=== PATIENT | female | born 1950 | race Caucasian/White ===

== ENCOUNTER 2017-09-16 13:02 | Outpatient (CLI) | payer MEDICARE | END 2017-09-16 13:03 | disposition home or self-care (01) | LOC: BICMAMMO 13:02 | PROVIDERS: ATTEND Family Medicine | DX: Z12.31 Encounter for screening mammogram for malignant neoplasm of breast (principal); N64.89 Other specified disorders of breast | CPT/HCPCS: 77063; 77067 ==

== ENCOUNTER 2018-01-28 09:15 | Outpatient (CLI) | payer MEDICARE ==
[2018-01-28 10:13] LABS: #Eosinphils 0.2 thou/uL (0.0-0.7); #Lymphocytes 1.8 thou/uL (1.20-3.40); #Monocytes 0.6 thou/uL (0.11-0.59); #Neutrophils 4.2 thou/uL (1.40-6.50); %Basophils 0.4 % (0.0-1.0); %Eosinophils 2.7 % (0.0-10.0); %Lymphocytes 26.3 % (21.0-51.0); %Monocytes 8.3 % (0.0-10.0); %Neutrophils 62.3 % (42.0-75.0); Mean Corpuscular HGB CONC 34.7 g/dL (32.0-36.0); Mean Corpuscular Hemoglobin 31.2 pg (27.0-31.0); Mean Platelet Volume 6.6 fL (7.4-10.4); Platelet Count 376 thou/uL (130-400); RBC Distribution Width 11.5 % (11.5-14.5); Red Blood Cell (RBC) Count 5.12 mill/uL (4.20-5.40); White Blood Cell (WBC) Count 6.7 thou/uL (4.8-10.8)
[2018-01-28 10:32] LABS: Anion Gap 13 mmol/L (10-20); BUN (Urea Nitrogen) 23 mg/dL (9.8-20.1); Calc. Creatinine Clearance 0 mL/min (70-130); Calcium 10.1 mg/dL (7.8-10.44); Carbon Dioxide 27 mmol/L (23-31); Chloride 102 mmol/L (98-107); Estimated GFR-MDRD 76; Glucose 103 mg/dL (80-115); Potassium 3.9 mmol/L (3.5-5.1); Sodium 138 mmol/L (136-145)
--- NOTE | 2018-02-01 10:02 | EKG ---
Test Reason : Blood Pressure : / mmHG Vent. Rate : 075 BPM Atrial Rate : 075 BPM P-R Int : 146 ms QRS Dur : 082 ms QT Int : 386 ms P-R-T Axes : 022 068 054 degrees QTc Int : 431 ms Poor data quality, interpretation may be adversely affected Normal sinus rhythm Low voltage QRS Cannot rule out Anterior infarct (cited on or before 16-OCT-2011) Abnormal ECG When compared with ECG of 30-MAY-2014 17:15, RSR' pattern in V1 is no longer Present Inverted T waves have replaced nonspecific T wave abnormality in Anterior leads Confirmed by DR. Cate MORSE ([id number]) on 02/01/2018 10:01:51 AM Referred By: IERO Confirmed By:DR. Cate MORSE
== END 2018-01-28 09:16 | disposition home or self-care (01) ==
LOC: LABBT 09:15
PROVIDERS: ATTEND Orthopaedic Surgery
DX: Z01.818 Encounter for other preprocedural examination (principal); S43.402A Unspecified sprain of left shoulder joint, initial encounter
CPT/HCPCS: 80048; 85025; 93005; 93010

== ENCOUNTER 2018-01-29 07:30 | Day surgery (SDC) | payer MEDICARE ==
[2018-01-28 09:30] VITALS: BMI 28.0
[2018-01-29] MEDS ORDERED: Fentanyl 100 MCG/2 ML VIAL ONE (08:41)
[2018-01-29] MEDS ORDERED: Midazolam HCl 2 mg/2 ml Vial ONE (08:41)
[2018-01-29] MEDS ORDERED: Zolpidem Tartrate 5 MG TAB PO PRN (09:04)
[2018-01-29] MEDS ORDERED: traMADol HCl 50 MG TAB PO PRN ×2 (09:04)
[2018-01-29] MEDS ORDERED: Ropivacaine 0.2% 550 ML 550 ML NERVE BLCK SCH (09:04)
[2018-01-29] MEDS ORDERED: HYDROcodone/Acetaminophen 10/325 mg Tablet PO PRN ×2 (09:04)
[2018-01-29] MEDS ORDERED: Promethazine HCl 25 MG/ML VIAL IM PRN (09:04)
[2018-01-29] MEDS ORDERED: Ketorolac Tromethamine 30 MG/ML VIAL IVP PRN (09:04)
[2018-01-29] MEDS ORDERED: Ondansetron HCl/PF 4 MG/2 ML Vial IVP PRN (09:04)
[2018-01-29] MEDS ORDERED: Fentanyl 100 MCG/2 ML VIAL IV PRN (09:05)
[2018-01-29] MEDS ORDERED: Lidocaine 2% Jelly 5 ML TUBE ONE (09:23)
[2018-01-29] MEDS ORDERED: Ropivacaine 0.2% HCl/PF (40 MG/20 ML VIAL) ONE (09:27)
[2018-01-29] MEDS ORDERED: Ropivacaine 0.5% HCl/PF (150 MG/30 ML VIAL) ONE (09:27)
[2018-01-29] MEDS ORDERED: Bupivacaine/Epinephrine 0.25% 30 ML VIAL ONE (09:33)
[2018-01-29] MEDS ORDERED: CEFAZOLIN/Water 2 GM/20 ML SYRINGE ONE (09:37)
[2018-01-29] MEDS ORDERED: Dexamethasone 20 MG/5 ML VIAL ONE (09:44)
[2018-01-29] MEDS ORDERED: PROPOFOL 200 MG/20 ML VIAL ONE (09:44)
[2018-01-29] MEDS ORDERED: ePHEDrine/0.9% NaCl/PF SYRINGE 50 mg/10 ml ONE (09:44)
[2018-01-29] MEDS ORDERED: Ondansetron HCl/PF 4 MG/2 ML Vial ONE (09:44)
[2018-01-29] MEDS ORDERED: Glycopyrrolate 0.2 MG/ML 5 ML SYRINGE ONE (09:44)
--- NOTE | 2018-01-29 12:38 | OP ---
DATE OF PROCEDURE: 01/29/2018 PREOPERATIVE DIAGNOSES: Left shoulder impingement, biceps tendon instability secondary to a large de generative SLAP tear. POSTOPERATIVE DIAGNOSES: Left shoulder impingement, biceps tendon instability secondary to a large d egenerative SLAP tear. PROCEDURE PERFORMED: Left shoulder arthroscopy with subacromial decompression, debridement of degene rative SLAP tear and open biceps tenodesis. SURGEON: Nicho De Los Santos M.D. AUTOCAD: None. BLOOD LOSS: 30 mL. COMPLICATIONS: None. ANESTHESIA: The patient had general anesthetic as well as preoperative block. IMPLANTS: Arthrex Bio-Tenodesis, BioComposite 7 x 23 screw. DISPOSITION: She did go to the recovery room in stable condition. INDICATIONS: A 67-year-old active female who comes in complaining of left shoulder pain that has bee n unresponsive to nonoperative treatment. At this time, she opted to have surgery. DESCRIPTION OF PROCEDURE: After all appropriate consent forms were explained and signed, she was amilcar en to the operating room and at this time was given general anesthetic. Once the level of anesthesia was appropriate, she was rolled into the right lateral decubitus position with all bony prominences well-padded. Axillary roll was placed underneath the right axilla and the traore bag was inflated on t his position. The arm was then taken through full range of motion and then suspended with 10 pounds in standard fashion using the arthroscopic roblero. The left shoulder and upper extremity were then p repped and draped in the standard surgical fashion. Marcaine with epinephrine was injected into the subacromial space. After the bony anatomic landmarks were then drawn out. Posterior portal was esta blished and the scope was placed into the shoulder joint. Anterior working portal was made using a n eedle localization technique. Diagnostic arthroscopy commenced in the articular surface of the humer al head and the glenoid showed some grade II chondromalacia changes, but no significant loose pieces of chondral tissue. No loose bodies and the superior labrum was found to be degenerative in nature. There was a lot of synovitic tissue superior to the biceps tendon and the superior labrum. This was debrided with the shaver and surface energy probe. We did have to recreate the space between the ov erlying rotator cuff and the labrum itself. Remaining labral tissue was intact. Subscapularis was i ntact. At this time, a green cannula was placed anteriorly and an 18-gauge needle was used to place a suture through the biceps tendon. Arthroscopic scissors were used to remove it from the superior l abral insertion. At this time, the shaver was used to debride this area. We then switched into the subacromial space and a lateral working portal was made using a surface energy as well as a shaver. Small bony decompression was performed. At this time, scope was removed and the shoulder was drained . A 15 blade was used to make an incision were our 18 gauge needle was and was taken down distally. Bovie was used to coagulate any brisk venous bleeding. Sharp dissection was used to open the deltoi d fascia and finger dissection was used to dissect down to the underlying transverse humeral ligament . This was opened up, the biceps tendon was pulled out to the wound. Copious venous bleeding was co agulated at this time. All the tendinous adhesions were removed from around the biceps and at this t marine, it was sutured with the suture loop device and we cut off the intra-articular portion. We then drilled our guide pin used a 7 mm reamer to ream to a depth of 25 and we then ream to a depth of 25 a nd then we went ahead and placed our biceps tendon into the bottom of this wound, fixating with a 7 x 23 BioComposite Bio-Tenodesis screw in standard fashion. Sutures were tied over top, so the screw c ould not back out. At this time, we thoroughly irrigated and dried. We then closed our deltoid fasc ia with a running Vicryl, 2-0 Vicryl, and nylon sutures were used to close this incision as well as a ll the portals. Bulky sterile dressing was applied. The patient was awakened and taken to the [facility] in stable condition. All counts were correct at the end of the case and she received preope rative IV antibiotics.
== END 2018-01-29 13:30 | disposition home or self-care (01) ==
LOC: SDC 07:30
PROVIDERS: ATTEND Orthopaedic Surgery
PROC: 0LS20ZZ Reposition Left Shoulder Tendon, Open Approach (ICD-10-PCS; principal; 2018-01-29)
PROC: 0RBK4ZZ Excision of Left Shoulder Joint, Percutaneous Endoscopic Approach (ICD-10-PCS; 2018-01-29)
DX: S43.432A Superior glenoid labrum lesion of left shoulder, initial encounter (principal); M75.42 Impingement syndrome of left shoulder; I10 Essential (primary) hypertension; F32.9 Major depressive disorder, single episode, unspecified; M81.0 Age-related osteoporosis without current pathological fracture; J45.909 Unspecified asthma, uncomplicated; Z79.82 Long term (current) use of aspirin; Z79.899 Other long term (current) drug therapy
CPT/HCPCS: 23430; 29822; A4306; C1713; J1100; J2250; J2405; J2704; J2795; J3010

== ENCOUNTER 2018-12-17 11:52 | Outpatient (CLI) | payer MEDICARE ==
--- NOTE | 2018-12-17 12:52 | MMO ---
Bilateral MAMMO Bilat Screen [facility]. CLINICAL HISTORY: Patient is 68 years old and is seen for screening. The patient has no family history of breast cancer. The patient has no personal history of cancer. VIEWS: The views performed were: bilateral craniocaudal with tomosynthesis and bilateral mediolateral oblique with tomosynthesis. FILMS COMPARED: The present examination has been compared to prior imaging studies performed at [facility] on 06/30/2014, 08/08/2015, 09/05/2016 and 09/16/2017. MAMMOGRAM FINDINGS: There are scattered fibroglandular densities. There are no suspicious masses, suspicious calcifications, or new areas of architectural distortion. IMPRESSION: THERE IS NO MAMMOGRAPHIC EVIDENCE OF MALIGNANCY. A ROUTINE FOLLOW-UP MAMMOGRAM IN 1 YEAR IS RECOMMENDED. THE RESULTS OF THIS EXAM WERE SENT TO THE PATIENT. ACR BI-RADS Category 1 - Negative MAMMOGRAPHY NOTE: 1. A negative mammogram report should not delay a biopsy if a dominant of clinically suspicious mass is present. 2. Approximately 10% to 15% of breast cancers are not detected by mammography. 3. Adenosis and dense breasts may obscure an underlying neoplasm. Reported by: FAZAL DAVID MD Electonically Signed: [id number]
== END 2018-12-17 11:53 | disposition home or self-care (01) ==
LOC: BICMAMMO 11:52
PROVIDERS: ATTEND Family Medicine
DX: Z12.31 Encounter for screening mammogram for malignant neoplasm of breast (principal)
CPT/HCPCS: 77063; 77067

== ENCOUNTER 2021-10-30 13:54 | Outpatient (CLI) | payer MEDICARE | END 2021-10-30 13:55 | disposition home or self-care (01) | LOC: BICMAMMO 13:54 | PROVIDERS: ATTEND Family Medicine | DX: Z12.31 Encounter for screening mammogram for malignant neoplasm of breast (principal) | CPT/HCPCS: 77063; 77067 ==

== ENCOUNTER 2023-01-01 13:39 | Outpatient (CLI) | payer MEDICARE | END 2023-01-01 13:40 | disposition home or self-care (01) | LOC: BICMAMMO 13:39 | PROVIDERS: ATTEND Family Medicine | DX: Z12.31 Encounter for screening mammogram for malignant neoplasm of breast (principal) | CPT/HCPCS: 77063; 77067 ==

== ENCOUNTER 2025-01-05 14:51 | Outpatient (CLI) | payer MEDICARE | END 2025-01-05 14:52 | disposition home or self-care (01) | LOC: BICMAMMO 14:51 | PROVIDERS: ATTEND Family Medicine | DX: Z12.31 Encounter for screening mammogram for malignant neoplasm of breast (principal) | CPT/HCPCS: 77063; 77067 ==